=== PATIENT | female | born 1970 ===

== ENCOUNTER 2022-02-03 05:35 | Day surgery (SDC) | payer OTHER ==
[~2022-02-03 05:35] MED LIST: SYNTHROID112 MCG PO
== END 2022-02-03 12:30 | disposition home or self-care (01) ==
LOC: CIR.AMB 05:35
PROVIDERS: ATTEND Orthopaedic Surgery
DX: M75.121 Complete rotator cuff tear or rupture of right shoulder, not specified as traumatic (principal); Z20.822 Contact with and (suspected) exposure to COVID-19; Z88.8 Allergy status to other drugs, medicaments and biological substances; E03.9 Hypothyroidism, unspecified